=== PATIENT | female | born 1955 | race Two or more races ===

== ENCOUNTER 2016-11-25 15:03 | Day surgery (SDC) | payer OTHER ==
[2016-11-25] VITALS (12 sets, daily range): BP systolic 107–127; BP diastolic 56–69; PULSE 55–89; RESP 12–17; Ht 162.6 cm; Wt 59.2 kg
[~2016-11-25] VITALS: Ht 162.6 cm; Wt 59.2 kg
[~2016-11-25 15:03] MED LIST: LIDOCAINE 2% (SDV) 5 ML INJ ONE; [UNRECOGNIZED DRUG - REMARK]
--- NOTE | 2016-11-25 15:34 | HPN ---
Date/Time of Note Date/Time of Note DATE: 11/25/16 TIME: 15:34 Interval H&P Admission Note Pt. seen H&P reviewed: No system changes ASHLEIGH COLMENARES Nov 25, 2016 15:34
[2016-11-25] MEDS ORDERED: SIMV20TA2 PO (16:09)
[2016-11-25] MEDS ORDERED: PROPOFOL 20 ML ONE (18:01)
[2016-11-25] MEDS ORDERED: ROPIVACAINE 0.5 % 30 ML VIAL ONE (18:01)
[2016-11-25] MEDS ORDERED: FENTAnyl 50 MCG/ML VIAL ONE (18:02)
[2016-11-25] MEDS ORDERED: POLYMYXIN/BACITRACIN 1L IRRIG ONE (18:04)
[2016-11-25] MEDS ORDERED: CEFAZOLIN 1 GM INJ ONE (18:27)
[2016-11-25] MEDS ORDERED: DEXAMETHASONE 4 MG/ML 1 ML INJ ONE (18:53)
[2016-11-25] MEDS ORDERED: ONDANSETRON 4 MG INJ ONE (18:54)
[2016-11-25] MEDS ORDERED: HYDROmorphONE (0.2 MG/ML) 10ML SYG IV PRN ×3 (20:00)
[2016-11-25] MEDS ORDERED: hydrALAzine 20 MG INJ IV PRN (20:00)
[2016-11-25] MEDS ORDERED: EPHEDrine SULFATE 50 MG/5 ML SYG IV PRN (20:00)
[2016-11-25] MEDS ORDERED: OXYCODONE/ACETAMINOPHEN (5/325) TAB PO PRN ×2 (20:00)
[2016-11-25] MEDS ORDERED: DIPHENHYDRAMINE 50 MG INJ IV PRN (20:00)
[2016-11-25] MEDS ORDERED: LABETALOL HCL 20MG INJ IV PRN (20:00)
[2016-11-25] MEDS ORDERED: FENTAnyl 50 MCG/ML VIAL IV PRN ×3 (20:00)
[2016-11-25] MEDS ORDERED: MEPERIDINE 25 MG INJ IV PRN (20:00)
[2016-11-25] MEDS ORDERED: ONDANSETRON 4 MG INJ IV PRN (20:00)
[2016-11-25] MEDS ORDERED: HYDROCODONE/APAP (5/325) TAB PO PRN (21:05)
--- NOTE | 2016-11-26 08:17 | RADRPT ---
PROCEDURE: Intraoperative imaging of the right wrist with fluoroscopy. CLINICAL INDICATION: Right wrist pain. Intraoperative. TECHNIQUE: 33 images of the right wrist were obtained in the operating room with an image intensif ier. No radiologist was in attendance. Fluoroscopy time is 1.5 minutes. COMPARISON: No prior study is available for comparison. FINDINGS: Images demonstrate open reduction and internal fixation of a comminuted fracture of the distal radiu s with a plate and multiple screws. There is also open reduction and internal fixation of the dista l ulna with 2 pins. IMPRESSION: 1. Intraoperative imaging of the right wrist. RPTAT: QQ .Jesús Grigsby MD, MD Date Time Electronically viewed and signed by .Jesús Grigsby MD, on 11/26/2016 08:17 .R/
--- NOTE | 2016-11-28 16:18 | OPR ---
DATE OF OPERATION: 11/25/2016 SURGEON: Hari Anton MD ANESTHESIA: General plus peripheral nerve block. PREOPERATIVE DIAGNOSES: 1. Right distal radius fracture, intra-articular, 3 fragments. 2. Right distal ulnar shaft fracture. POSTOPERATIVE DIAGNOSES: 1. Right distal radius fracture, intra-articular, 3 fragments. 2. Right distal ulnar shaft fracture. OPERATION PERFORMED: 1. Open reduction, internal fixation of right distal radius fracture, intra-articular, 3 fragments. 2. Open reduction internal fixation of right distal ulnar shaft fracture. 3. Right carpal tunnel release, open. OPERATIVE FINDINGS AT SURGERY: 1. Displaced distal radius fracture with early callus formation and deformity. 2. Displaced and rotated distal ulnar fracture. 3. Swelling within the carpal canal. INDICATION: The patient is a 61-year-old female with injury to the right wrist. She was seen in clinic and options were discussed. She elected to proceed with surgical intervention. Understanding the risks, benefits. OPERATIVE PROCEDURE: The patient was seen in preoperative area. All further questions were answered. Again, she gave informed consent, understanding the risks and benefits. The patient was taken to the operative suite and placed in supine position. A peripheral nerve block was performed at my request by the anesthesia team for perioperative anesthesia, as well as postoperative pain relief. After the nerve block was performed. The patient was placed under general anesthesia and Ancef 2 grams was given. Tourniquet placed on the right upper extremity, and the right upper extremity was prepped with ChloraPrep stick and draped in usual sterile fashion. Esmarch bandage used to exsanguinate the extremity and tourniquet inflated to 250 mmHg. Attention was first turned to the distal radius and a modified volar Romeo approach to the distal radius was utilized with sharp dissection carried down through skin and subcutaneous tissue. The FCR sheath was incised and the FCR tendon retracted ulnarly. The FCR sub sheath was incised, and FPL tendon was retracted ulnarly. The pronator quadratus was identified and was incised along its radial and distal borders using Bovie electrocautery. The fracture site was identified and there was early callus formation, and extension of the distal fragment. A rongeur was used to debride the callus and a [place] elevator was used to mobilize the fracture site. Once the fracture was freed up, it was brought into a more anatomic position and a [employer] distal radius plate was placed across the fracture site. A cortical screw was placed in the oblong hole and 2 distal locking screws were placed. X-ray imaging confirmed near anatomic alignment and appropriate hardware positioning. Additional cortical and locking screws were placed proximally and distally. X-ray imaging confirmed appropriate hardware placement and bony alignment. After fixation of the distal radius. The distal ulna was still significantly displaced and attention was turned to fixing the distal ulna fracture. A longitudinal incision over the shaft of the distal ulna was utilized with sharp dissection and carried down through skin and subcutaneous tissue. The ECU and FCU interval was incised in the ulnar shaft and styloid was visualized. There is a displaced distal fragment which was also rotated. The fracture was mobilized with nice dissection, with care taken to preserve the distal fragment. Once the fragment was freed up, it was found to be rotated 90 degrees and displaced ulnarly and dorsally. The fracture was brought into a more anatomic position and due to the small fragment and I felt that plate fixation would be difficult and bothersome to the patient and therefore proceeded with K-wire fixation of the fragment. A 0.045 K-wire was used to retrograde to secure the fracture fragment, and an additional 0.045 K-wire was used antegrade providing fixation of the styloid and distal ulna fragment. At this point, I determined that a carpal tunnel release would be most appropriate due to the need for significant mobilization of the bony fragments and time of surgery, which would put the patient at risk for possible postsurgical carpal tunnel syndrome. This concern was also heightened due to the peripheral nerve block which would mask the symptoms. The patient was consented for carpal tunnel release and I proceeded with a carpal tunnel release. At this point in time. A 2 cm incision at the base of the palm was utilized with sharp dissection carried down through skin and subcutaneous tissue. The palmar aponeurosis was identified and it was incised along the ulnar border. The retractors were deepened and the transverse carpal ligament was identified and was incised along the ulnar border. A retractor was placed distally and the ligament was divided under direct visualization. Further dissection proximally was utilized to divide the antebrachial fascia off the transverse carpal ligament. The ligament was divided proximally under direct visualization. Wounds were copiously irrigated and all wounds closed with #4-0 nylon. Xeroform applied to the wounds, followed by sterile gauze and Webril. Pins were cut short at the distal ulna and pin caps placed. The patient was placed into a long-arm splint. With neutral forearm rotation and the tourniquet was deflated after 103 minutes. The patient was awakened from anesthesia, and taken to the postoperative suite in stable condition. The patient tolerated the procedure well. Specimens none. Estimated blood loss was 5 mL. Sponge and needle counts correct. Tourniquet time 103, minutes. Fluoroscopic images 34. Fluoroscopic time 1.17 seconds. Condition on discharge was stable. Dictated By: Hari Anton MD /[email or web address] /Document#: [id number]
== END 2016-11-25 21:52 | disposition home or self-care (01) ==
LOC: SDS 15:03
PROVIDERS: ATTEND Orthopaedic Surgery Hand Surgery
DX: S52.571D Other intraarticular fracture of lower end of right radius, subsequent encounter for closed fracture with routine healing (principal); S52.611D Displaced fracture of right ulna styloid process, subsequent encounter for closed fracture with routine healing; X58.XXXD Exposure to other specified factors, subsequent encounter; E78.5 Hyperlipidemia, unspecified
CPT/HCPCS: 25609; 25652; 73110; C1713; J0690; J1100; J2405; J2795; J3010; Z7512; Z7610